=== PATIENT | female | born 1985 ===

== ENCOUNTER → 2019-01-02 | Outpatient (CLI) | payer MEDICAID ==
[~2019-01-02] VITALS: Ht 175.3 cm; Wt 116.1 kg
[2019-01-02 13:13] VITALS: BP 132/79
== END | disposition home or self-care (01) ==
LOC: OPS 11:42
PROVIDERS: ATTEND Specialist
DX: O26.899 Other specified pregnancy related conditions, unspecified trimester (principal); Z67.41 Type O blood, Rh negative
CPT/HCPCS: 36415; 86850; 86900; 86901; 96372; J2791